=== PATIENT | male | born 1955 | race Hispanic/Latino ===

== ENCOUNTER 2016-12-25 10:54 | Emergency (ER) | payer OTHER ==
[2016-12-25 11:46] VITALS: BP 141/89
--- NOTE | 2016-12-25 12:01 | EDM.PDOC ---
ED HPI Behavioral Health - General Chief Complaint: Behavioral/Psych Stated Complaint: UNK Time Seen by Provider: 12/25/16 11:48 Source of Information: Reports: Patient, Police Exam Limitations: Reports: No limitations - History of Present Illness INITIAL COMMENTS - FREE TEXT/NARRATIVE: History of present illness: [61-year-old male brought in by law-enforcement secondary to patient making spontaneous statements of desire to commit suicide. Patient was pulled over by police and started crying and placed in his car and dialogue with him and that' s when he indicated that his life was worth living and he wanted to kill himself. Place brought patient in for evaluation. While dialogue with patient he denied desire to kill himself he admitted that he has felt hopeless off and on for the last year or so when he found out that his of 21+ years had been unfaithful to him. Approximately a year ago he consider cleaning himself but decided against it because he realized his children was living for an 8 didn 't need to deal with him committing suicide as they were still small. Patient acknowledges he has a strong estela and Prays to [facility] daily] Review of systems: As per history of present illness and below otherwise all systems reviewed and negative. Past medical history: As per history of present illness and as reviewed below otherwise noncontributory. Surgical history: As per history of present illness and as reviewed below otherwise noncontributory. Social history: No reported history of drug or alcohol abuse. Family history: As per history of present illness and as reviewed below otherwise noncontributory. Physical exam: HEENT: Atraumatic, normocephalic, pupils reactive, negative for conjunctival pallor or scleral icterus, mucous membranes moist, throat clear, neck supple, nontender, trachea midline. Lungs: Clear to auscultation, breath sounds equal bilaterally, chest nontender. Heart: S1S2, regular, negative for clicks, rubs, or JVD. Abdomen: Soft, nondistended, nontender. Negative for masses or hepatosplenomegaly. Negative for costovertebral tenderness. Pelvis: Stable nontender. Genitourinary: Deferred. Rectal: Deferred. Extremities: Atraumatic, negative for cords or calf pain. Neurovascular unremarkable. Neuro: Awake, alert, oriented. Cranial nerves II through XII unremarkable. Cerebellum unremarkable. Motor and sensory unremarkable throughout. Exam nonfocal. Diagnostics: [] Therapeutics: [CBC, CMP, UA, urine EtOH] Impression: [Intermittent situational depression, patient denies suicidal ideation] Plan: [Discharged with a referral to [place]] Definitive disposition and diagnosis as appropriate pending reevaluation and review of above. - Related Data Allergies Allergy/AdvReac Type Severity Reaction Status Date / Time No Known Allergies Allergy Verified 12/25/16 11:10 Home Medications: Home Meds . [No Known Home Meds] 12/25/16 [History] Past Medical History - Past Health History Medical/Surgical History: Denies Medical/Surgical History Social & Family History - Tobacco Use Smoking Status *Q: Current Every Day Smoker Years of Tobacco use: 20 Packs/Tins Daily: 0.5 - Caffeine Use Caffeine Use: Reports: None - Recreational Drug Use Recreational Drug Use: No ED ROS GENERAL - Review of Systems Review Of Systems: See Below (See history of present illness) ED EXAM, BEHAVIORAL HEALTH - Physical Exam Exam: See Below (The history of present illness) COURSE, BEHAVIORAL HEALTH COMP - Course Vital Signs: Last Vital Signs Temp 37.1 C 12/25/16 11:11 Pulse 78 12/25/16 11:11 Resp 18 12/25/16 11:11 BP 141/89 H 12/25/16 11:11 Pulse Ox 96 12/25/16 11:11 Orders, Labs, Meds: Active Orders 24 hr Category Date Time Status COMPREHENSIVE METABOLIC PN,CMP [CHEM] Stat Lab 12/25/16 11:45 Received ETHANOL BLOOD MEDICAL [CHEM] Stat Lab 12/25/16 11:45 Received UA W/MICROSCOPIC [URIN] Stat Lab 12/25/16 11:31 Uncollected Laboratory Tests 12/25/16 Range/Units 11:45 WBC 9.87 (4.0-11.0) K/uL RBC 5.62 (4.50-5.90) M/uL Hgb 17.8 H (13.0-17.0) g/dL Hct 51.2 H (38.0-50.0) % MCV 91.1 (80.0-98.0) fL MCH 31.7 (27.0-32.0) pg MCHC 34.8 (31.0-37.0) g/dL RDW Std Deviation 48.8 (28.0-62.0) fl RDW Coeff of [place] 15 (11.0-15.0) % Plt Count 129 L (150-400) K/uL MPV 12.00 (7.40-12.00) fL Neut % (Auto) 75.2 (48.0-80.0) % Lymph % (Auto) 16.7 (16.0-40.0) % [place] % (Auto) 7.0 (0.0-15.0) % Eos % (Auto) 0.9 (0.0-7.0) % Baso % (Auto) 0.2 (0.0-1.5) % Neut # (Auto) 7.4 H (1.4-5.7) K/uL Lymph # (Auto) 1.7 (0.6-2.4) K/uL [place] # (Auto) 0.7 (0.0-0.8) K/uL Eos # (Auto) 0.1 (0.0-0.7) K/uL Baso # (Auto) 0.0 (0.0-0.1) K/uL Nucleated RBC % 0.0 /100WBC Nucleated RBCs # 0 K/uL Departure - Departure Time of Disposition: 12:39 Disposition: Home, Self-Care 01 Condition: good Clinical Impression: Depressive disorder Forms: ED Department Discharge Additional Instructions: The following information is given to patients seen in the emergency department who are being discharged to home. This information is to outline your options for follow-up care. We provide all patients seen in our emergency department with a follow-up referral. The need for follow-up, as well as the timing and circumstances, are variable depending upon the specifics of your emergency department visit. If you don't have a primary care physician on staff, we will provide you with a referral. We always advise you to contact your personal physician following an emergency department visit to inform them of the circumstance of the visit and for follow-up with them and/or the need for any referrals to a consulting specialist. The emergency department will also refer you to a specialist when appropriate. This referral assures that you have the opportunity for follow-up care with a specialist. All of these measure are taken in an effort to provide you with optimal care, which includes your follow-up. Under all circumstances we always encourage you to contact your private physician who remains a resource for coordinating your care. When calling for follow-up care, please make the office aware that this follow-up is from your recent emergency room visit. If for any reason you are refused follow-up, please contact the [facility] Emergency Department at and asked to speak to the emergency department charge nurse. Followup with [facility] He can help you with your chronic low-grade depression If you have any other needs or concerns as discussed please return to the ED - My Orders Last 24 Hours: My Active Orders 12/25/16 11:31 UA W/MICROSCOPIC [URIN] Stat 12/25/16 11:45 COMPREHENSIVE METABOLIC PN,CMP [CHEM] Stat ETHANOL BLOOD MEDICAL [CHEM] Stat - Assessment/Plan Last 24 Hours: My Active Orders 12/25/16 11:31 UA W/MICROSCOPIC [URIN] Stat 12/25/16 11:45 COMPREHENSIVE METABOLIC PN,CMP [CHEM] Stat ETHANOL BLOOD MEDICAL [CHEM] Stat
[2016-12-25 12:14] LABS: CHLORIDE,CL 108 mmol/L (98-110); SODIUM,NA 142 mmol/L (136-146)
== END 2016-12-25 13:05 | disposition home or self-care (01) ==
LOC: MW.ED 10:54
DX: F32.9 Major depressive disorder, single episode, unspecified (principal); F17.210 Nicotine dependence, cigarettes, uncomplicated
CPT/HCPCS: 36415; 80053; 85025; 99284; G0480; 99283